=== PATIENT | female | born 1955 | race Two or more races ===

== ENCOUNTER 2019-08-10 15:42 | Emergency (ER) | payer OTHER ==
[~2019-08-10] VITALS: Ht 149.9 cm; Wt 63.5 kg
[2019-08-10] MEDS ORDERED: NKM (15:51)
[2019-08-10 16:01] VITALS: BP 151/97
--- NOTE | 2019-08-10 16:04 | NUR ---
ED Nurse Note:pt. c/o left sided toung swelling and pain for several days
--- NOTE | 2019-08-10 16:48 | Emergency Room Report ---
History of Present Illness General Chief Complaint: Pain Source: Patient Present Illness HPI 63-year-old female presents to the emergency department complaining of persistent 10/10 in severity painful sores/ulcers and the mouth and on her tongue x4 months. Patient reports she has a bridge in place that could be causing the problem. Patient denies fevers, chills, nausea, vomiting, recent dental procedures, history of HIV or immune compromise. Patient reports being given chlorhexidine mouthwash which she is allergic to. Patient denies rashes or lesions elsewhere on the body. She denies swelling of the lips or tongue. Patient denies sores or lesions on the back of the throat. Patient reports that talking and brushing her teeth exacerbate her pain. She denies bleeding of the sores or gums. Patient reports she has an appointment with a specialist but it is not until the end of the month. No other aggravating or relieving factors at this time. Allergies: Coded Allergies: No Known Allergies (Unverified , 08/10/19) Patient History Past Medical History: see triage record Past Surgical History: none Pertinent Family History: none Last Menstrual Period: n/a Now: No Reviewed Nursing Documentation: PMH: Agreed; PSxH: Agreed Nursing Documentation-PMH Past Medical History: No Stated History Review of Systems All Other Systems: negative except mentioned in HPI Physical Exam Vital Signs Date Time Temp Pulse Resp B/P (MAP) Pulse Ox O2 Delivery O2 Flow Rate FiO2 08/10/19 15:45 98.2 70 18 151/97 (115) 97 Room Air Sp02 EP Interpretation: reviewed, normal General Appearance: no apparent distress, alert, GCS 15, non-toxic Head: normocephalic, atraumatic Eyes: bilateral eye normal inspection, bilateral eye PERRL ENT: hearing grossly normal, normal pharynx, no angioedema, normal voice, other - on specific mucosal sores which are also along the lateral aspect of the tongue, no plaques, no fluctuance, no swelling. No bleeding of the gums, vesicles or blisters. Neck: full range of motion Respiratory: chest non-tender, lungs clear, normal breath sounds, no wheezing, speaking full sentences Cardiovascular #1: regular rate, rhythm Musculoskeletal: gait/station normal, normal range of motion, non-tender Neurologic: alert, oriented x3, responsive, motor strength/tone normal, sensory intact, speech normal, grossly normal Psychiatric: judgement/insight normal Skin: no rash - NO rash externally, only oral mucosal sores, see ENT. Lymphatic: no adenopathy Medical Decision Making PA Attestation Dr. Mckay Is my supervising Physician whom patient management has been discussed with. Diagnostic Impression: Primary Impression: Recurrent oral ulcers ER Course 63-year-old female presents to the emergency department complaining of persistent 10/10 in severity painful sores/ulcers and the mouth and on her tongue x4 months. Patient reports she has a bridge in place that could be causing the problem. Patient denies fevers, chills, nausea, vomiting, recent dental procedures, history of HIV or immune compromise. Patient reports being given chlorhexidine mouthwash which she is allergic to. Patient denies rashes or lesions elsewhere on the body. She denies swelling of the lips or tongue. Patient denies sores or lesions on the back of the throat. Patient reports that talking and brushing her teeth exacerbate her pain. She denies bleeding of the sores or gums. Patient reports she has an appointment with a specialist but it is not until the end of the month. No other aggravating or relieving factors at this time. Ddx considered but are not limited to: stomatitis, aphthous ulcers, oral thrush , HFM, koplik spots, HSV, dental abscess, [employer], tonsiliths. Vital signs: are WNL, pt. is afebrile H&PE are most consistent with non specific mucosal sores, no plaques, no fluctuance, no swelling. ORDERS: none required at this time, the diagnosis is clinical ED INTERVENTIONS: None required at this time. -I do not identify an emergent condition at this time. With current presentation , pt. is stable for close outpatient follow up and conservative treatment. D/ w pt. to return promptly to ED with worsening or new symptoms.- Pt. verbalizes' understanding and agreement with proposed treatment plan. DISCHARGE: At this time pt. is stable for d/c to home. Will provide printed patient care instructions, and any necessary prescriptions. Care plan and follow up instructions have been discussed with the patient prior to discharge. Last Vital Signs Date Time Temp Pulse Resp B/P (MAP) Pulse Ox O2 Delivery O2 Flow Rate FiO2 08/10/19 16:01 98.2 75 18 151/97 97 Room Air Disposition: HOME, SELF-CARE Condition: Stable Scripts Multivitamin With Minerals (MULTIVITAMINS WITH MINERALS*) 1 Each Tablet 1 TAB ORAL DAILY for 30 Days, #30 TAB Prov: Latasha Ramirez 08/10/19 Benzocaine (ANBESOL) 9 Gm Gel..gram. 1 APPLIC MM QID for pain, #9 GM Prov: Latasha Ramirez 08/10/19 Acyclovir* (ZOVIRAX*) 800 Mg Tablet 800 MG ORAL FIVE TIMES A DAY for 7 Days, #35 TAB Prov: Latasha Ramirez 08/10/19 Patient Instructions: Oral Ulcers Additional Instructions: Take medications as directed. Follow up with a Primary Care Provider in 3-5 days, even if your symptoms have resolved. Return sooner to ED if new symptoms occur, or current symptoms become worse. - Please note that this Emergency Department Report was dictated using [employer] technology software, occasionally this can lead to erroneous entry secondary to interpretation by the dictation equipment. Latasha Ramirez Aug 10, 2019 16:48
[2019-08-10] MEDS ORDERED: ANBESOL9 GM MM (16:52)
[2019-08-10] MEDS ORDERED: MULTIVITAMINS1 EAC8 ORAL (16:52)
[2019-08-10] MEDS ORDERED: ACYCLOVIR800 MG ORAL (16:52)
--- NOTE | 2019-08-10 17:00 | NUR ---
ER DISCHARGE NOTE: Patient is cleared to be discharged per ERMD, pt is aox4, on room air, with stable vital signs. pt was given dc and prescription instructions, pt was able to verbalize understanding, pt is able to ambulate with steady gait. pt took all belongings.
[2019-08-10 17:31] VITALS: BP 151/97
== END 2019-08-10 17:10 | disposition home or self-care (01) ==
LOC: EMR 16:59
DX: K12.0 Recurrent oral aphthae (principal)
CPT/HCPCS: 99282